=== PATIENT | male | born 1960 | race Caucasian/White ===

== ENCOUNTER 2017-02-04 04:05 | Emergency (ER) | payer BC ==
[~2017-02-04] VITALS: Ht 182.9 cm; Wt 86.4 kg
[2017-02-04 04:11] VITALS: TEMP 98.2
[2017-02-04 05:20] LABS: PH 6 (5-8); SQUAMOUS EPITHELIAL None Seen /hpf; URINE APPEARANCE Cloudy; URINE BACTERIA None Seen /hpf; URINE BILIRUBIN Negative (NEGATIVE); URINE BLOOD 3+ (NEGATIVE); URINE COLOR Yellow; URINE GLUCOSE Negative (NEGATIVE); URINE KETONE Negative (NEGATIVE); URINE RBC >50 /hpf; URINE UROBILINOGEN Negative (NEGATIVE)
[2017-02-04 05:21] LABS: URINE WBC >50 /hpf
[2017-02-04] MEDS ORDERED: OMNICEF 300MG300 MG PO (05:54)
[2017-02-04] MEDS ORDERED: PYRIDIUM200 M1 PO (05:54)
[2017-02-04 06:25] VITALS: BP 123/74; PULSE 77
== END 2017-02-04 06:25 | disposition home or self-care (01) ==
LOC: COL.ER 04:05
PROVIDERS: Emergency Medicine
DX: N39.0 Urinary tract infection, site not specified (principal); R33.9 Retention of urine, unspecified; B96.20 Unspecified Escherichia coli [E. coli] as the cause of diseases classified elsewhere; Z87.440 Personal history of urinary (tract) infections; Z87.438 Personal history of other diseases of male genital organs